=== PATIENT | female | born 1970 | race African-American/Black ===

== ENCOUNTER → 2017-03-17 | Outpatient (CLI) | payer OTHER ==
--- NOTE | 2017-03-18 11:09 | KCIC ---
DATE: 03/17/2017 EXAM: MAMMO RUPERT SCREENING BILATERAL HISTORY: Screening COMPARISON: None. This is a baseline study. This study was interpreted with the benefit of Computerized Aided Detection (CAD). FINDINGS: Breast Density: SCATTERED The breast parenchyma shows scattered fibroglandular densities. Breast parenchyma level B. The right breast is unremarkable. There are well-defined masses superiorly and laterally in the left breast probably reflecting intramammary lymph nodes. Targeted ultrasound of this area of the breast is suggested for confirmation IMPRESSION: Well-defined densities upper outer left breast probably reflecting lymph nodes. Targeted ultrasound suggested for additional evaluation BI-RADS CATEGORY: 0 INCOMPLETE: NEED ADDITIONAL IMAGING EVAULATION AND/OR PRIOR MAMMOGRAMS FOR COMPARISON RECOMMENDED FOLLOW-UP: ADD ADDITIONAL IMAGING PQRS compliance statement: Patient information was entered into a reminder system with a target due date soon for the next mammogram. Mammography is a sensitive method for finding small breast cancers, but it does not detect them all and is not a substitute for careful clinical examination. A negative mammogram does not negate a clinically suspicious finding and should not result in delay in biopsying a clinically suspicious abnormality. "Our facility is accredited by the [employer] Mammography [employer]."
== END | disposition home or self-care (01) ==
LOC: KCIC MAMMO 18:08
PROVIDERS: ATTEND Family Medicine
DX: Z12.31 Encounter for screening mammogram for malignant neoplasm of breast (principal)
CPT/HCPCS: 77063; G0202; 77067

== ENCOUNTER → 2017-03-21 | Outpatient (CLI) | payer OTHER ==
--- NOTE | 2017-03-21 15:16 | RAD ---
LEFT BREAST SONOGRAPHY Indications: Further evaluation of nodules of the upper-outer quadrant of the left breast seen on baseline mammogram dated March 17, 2017. Findings: High-resolution sonography of the upper outer quadrant of the left breast was performed. At the 2:00 position 9 cm from nipple, a lymph node is seen measuring 15 mm in size demonstrating normal lymph node sonographic architecture. At the 2:00 position 10 cm from the nipple, a lymph node is seen measuring 7 mm in size demonstrating normal lymph node sonographic architecture. At the 12:00 position 8 cm from the nipple, another lymph node is seen measuring 8 mm in size demonstrating normal lymph node sonographic architecture. These findings correspond to the mammographic findings. IMPRESSION: Probable benign lymph nodes within the upper-outer quadrant of the left breast. Recommend 6 month follow-up 2-D mammography and left breast sonography for further evaluation. BI-RADS Category 3 probable benign finding. The patient information was entered into the data reminder system with a target due date for the next mammogram of September 19, 2017.
== END | disposition home or self-care (01) ==
LOC: KCIC US 14:23
PROVIDERS: ATTEND Family Medicine
DX: N63.20 Unspecified lump in the left breast, unspecified quadrant (principal)
CPT/HCPCS: 76641

== ENCOUNTER → 2017-09-18 | Outpatient (CLI) | payer OTHER | END | disposition home or self-care (01) | LOC: KCIC MAMMO 08:21 | DX: R92.8 Other abnormal and inconclusive findings on diagnostic imaging of breast (principal) | CPT/HCPCS: 76641; 77065 ==

== ENCOUNTER → 2020-02-02 | Outpatient (CLI) | payer OTHER ==
--- NOTE | 2020-02-02 16:50 | KCIC ---
Transabdominal and endovaginal pelvic ultrasound. INDICATION: Pelvic pain. History of fibroids. 29-year-old woman, LMP 01/26/2020. COMPARISON: No relevant comparisons currently available. TECHNIQUE: Transabdominal and endovaginal ultrasound of the pelvis was performed using grayscale and color Doppler imaging. FINDINGS: The uterus measures 10.1 x 5.1 x 5.4 cm (length by AP by transverse) The endometrial stripe measures 1 cm. Circumscribed hypoechoic solid mass measuring 1.9 x 2.1 x 1.7 cm in the dorsal aspect of the low uterine segment is seen, suggesting a fibroid. Cystic structures in the cervix are noted, suggesting nabothian cysts. The ovaries are not well seen. IMPRESSION: Dorsal, low uterine segment subserosal 2 cm mass compatible with a fibroid. The ovaries are not well seen. Correlate with history and consider further imaging follow-up ultrasound or MRI if clinically appropriate Electronically signed by: Rajeev Monsivais MD (02/02/2020 4:47 PM) [id number]
--- NOTE | 2020-02-04 15:26 | KCIC ---
BILATERAL SCREENING MAMMOGRAM, 3-D History: Routine screening. Comparison: Bilateral mammogram March 17, 2017. Left mammogram September 18, 2017. Technique: MLO and CC digital tomosynthesis (3D) images obtained. Radiologist reviewed these images on dedicated workstation. Findings: Breast Tissue Density B : There are scattered areas of fibroglandular density. Glandular nodularity of the outer left breast including intramammary lymph nodes is stable. There are no dominant masses, suspicious microcalcifications, or architectural distortion. IMPRESSION: No mammographic evidence of malignancy. Recommend routine screening. BI-RADS category 2: Benign findings. The images were reviewed with computer-aided detection. Patient information is entered into reminder system with a target due date for the next screening mammogram. Mammography is the most sensitive method for finding small breast cancers, but it does not detect them all and is not a substitute for careful clinical examination. A negative mammogram does not negate a clinically suspicious finding and should not result in delay in biopsying a clinically suspicious abnormality. "Our facility is accredited by the [employer] Mammography [employer]." Electronically signed by: Nestor Ruiz MD (02/04/2020 3:23 PM) [email or web address]
== END ==
LOC: KCIC US 14:56
PROVIDERS: ATTEND Family Medicine
DX: Z12.31 Encounter for screening mammogram for malignant neoplasm of breast (principal); D25.2 Subserosal leiomyoma of uterus
CPT/HCPCS: 76856; 77063; 77067

== ENCOUNTER → 2021-02-22 | Outpatient (CLI) | payer BC, OTHER ==
--- NOTE | 2021-02-22 18:36 | KCIC ---
Bilateral digital screening mammograms with 3-D tomosynthesis: Reason for examination: Routine screening. Comparison is made to previous studies dated back to 03/17/2017. Bilateral mammograms in CC and oblique projections were obtained with 2-D imaging and 3-D tomosynthes is imaging on a Siemens Inspiration unit and reviewed on the workstation. Interpretation was made wit h the benefit of CAD. The skin and nipples show no abnormalities. No abnormal axillary lymph nodes are seen. The breast par enchyma shows scattered fatty and fibroglandular density. (Breast density: Category B.) There are sma ll intramammary lymph nodes in the upper outer quadrant posteriorly in the left breast. There is abarca tami a new 1 cm nodular density located at approximately the 4:00 position of the left breast approxim ately 17 cm from the nipple. Further evaluation with ultrasound is recommended. There are no other ne w dominant masses, suspicious calcifications or architectural distortion. Impression: 1 cm nodule inferiorly in the left breast at approximately the 4:00 position 17 cm from the nipple. R ecommend further evaluation with ultrasound. BI-RADS Category 0: Incomplete. Needs additional imaging evaluation. "Our facility is accredited by the [employer] Mammography [employer]." This patient's information has been entered into a reminder system for the patient to be notified wit h the results of her examination and a target date for the next mammogram. Electronically signed by: Fadumo Dean MD (02/22/2021 6:34 PM) [email or web address]
== END ==
LOC: KCIC MAMMO 16:09
PROVIDERS: ATTEND Family Medicine
DX: Z12.31 Encounter for screening mammogram for malignant neoplasm of breast (principal)
CPT/HCPCS: 77063; 77067

== ENCOUNTER → 2021-03-13 | Outpatient (CLI) | payer BC, OTHER ==
--- NOTE | 2021-03-13 08:43 | KCIC ---
Left breast ultrasound: Reason for examination: Nodular density on screening mammogram. Comparison is made to mammographic exam dated 02/22/2021. Ultrasound examination of the left breast and axilla was performed. At the 3:30 position 12 cm from the nipple, there is a hypoechoic circumscribed lesion measuring 7.4 x 8.8 mm in greatest dimensions which probably represents a complicated cyst. No other cystic or agusto d nodules are seen. No abnormal appearing lymph nodes are seen axilla. IMPRESSION: Small circumscribed nodule consistent with a complicated cyst at the 3:30 position 12 cm from the nip ple. Recommend reevaluation in 6 months with left breast mammograms and ultrasound. BI-RADS Category 3: Probably Benign. "Our facility is accredited by the [employer]ammography [employer]." This patient's information has been entered into a reminder system for the patient to be notified wit h the results of her examination and a target date for the next mammogram. Electronically signed by: Fadumo Dean MD (03/13/2021 8:41 AM) [email or web address]
== END ==
LOC: KCIC US 08:05
PROVIDERS: ATTEND Family Medicine
DX: R92.2 Inconclusive mammogram (principal); N63.20 Unspecified lump in the left breast, unspecified quadrant
CPT/HCPCS: 76641

== ENCOUNTER → 2021-09-13 | Outpatient (CLI) | payer BC, OTHER ==
--- NOTE | 2021-09-13 14:40 | KCIC ---
Left breast diagnostic digital mammograms with 3-D tomosynthesis: Reason for examination: Follow-up nodule. Comparison is made to previous studies dated back to 03/17/2017. Left breast mammograms in CC and oblique projections were obtained with 2-D imaging and 3-D tomosynth esis imaging on a Siemens Inspiration unit and reviewed on the workstation. Interpretation was made w ith the benefit of CAD. The skin and nipple show no abnormalities. No abnormal axillary lymph nodes are seen. The breast pare nchyma shows scattered fatty and fibroglandular density. (Breast density: Category B.) There continue to be small intramammary lymph nodes at the 2:00 C position. The nodular density seen previously at the 4:00 position is not identified. There is however some patchy fibroglandular tissue on one of the oblique views which is probably due to some superimposition of tissues. There are no other new domin ant masses, suspicious calcifications or architectural distortion. Impression: No evidence of malignancy. Ultrasound to follow. BI-RAD Category 0: Incomplete. Needs additional imaging evaluation. Left breast ultrasound: Comparison is made to previous study dated 03/13/2021. Ultrasound examination of the left breast and axilla was performed. The small nodule seen previously at the 3:30 position is no longer identified. Benign-appearing lymph nodes are seen in the axilla. IMPRESSION: Small nodule at the 3:30 position appears to regressed. No suspicious abnormalities are seen. Recommend continued follow-up in 6 months at the time of bilateral bilateral mammograms. BI-RADS Category 3: Probably Benign. "Our facility is accredited by the [employer] Mammography [employer]." This patient's information has been entered into a reminder system for the patient to be notified wit h the results of her examination and a target date for the next mammogram. Electronically signed by: Fadumo Dean MD (09/13/2021 2:38 PM) [email or web address]
== END ==
LOC: KCIC MAMMO 13:03
PROVIDERS: ATTEND Family Medicine
DX: N63.20 Unspecified lump in the left breast, unspecified quadrant (principal); R92.2 Inconclusive mammogram
CPT/HCPCS: 76641; 77065; G0279; 77061